=== PATIENT | male | born 1975 | race African-American/Black ===

== ENCOUNTER 2016-11-17 19:10 | Emergency (ER) | payer MEDICAID ==
[~2016-11-17] VITALS: Ht 170.2 cm; Wt 80.7 kg
[~2016-11-17 19:10] MED LIST: ASPIRIN EC325 MG ORAL; ATORVASTATIN CA20 MG ORAL; AZITHROMYCIN250 MG ORAL; GLIPIZIDE5 MG ORAL; METFORMIN HCL500 M1 ORAL; PROMETHAZINE-D118 ML ORAL; QUINAPRIL-HCTZ1 EACH PO; TOBREX3.5 GM OP
[2016-11-17 19:34] VITALS: BP 120/78
[2016-11-17] MEDS ORDERED: DiphenhydrAMINE 50mg/ml Inj IVP ONE (19:45)
[2016-11-17] MEDS ORDERED: Metoclopramide 10mg/2ml Inj IVP ONE (19:45)
[2016-11-17] MEDS ORDERED: LORazepam 1mg tab ORAL ONE (19:45)
[2016-11-17 20:49] LABS: MEAN CORPUSCULAR HEMOGLOBIN 32.9 PG (27.0-31.0); MEAN CORPUSCULAR HGB CONC 34.6 G/DL (32.0-36.0); MEAN CORPUSCULAR VOLUME 95 FL (80-99); MEAN PLATELET VOLUME 10.4 FL (6.5-10.1); PLATELET COUNT 176 K/UL (150-450); RED BLOOD COUNT 4.99 M/UL (4.70-6.10); WHITE BLOOD COUNT 9.2 K/UL (4.8-10.8)
[2016-11-17 20:50] LABS: LYMPHOCYTES % (AUTO) 6.2 % (20.0-45.0); MONOCYTES % (AUTO) 1.7 % (1.0-10.0); NEUTROPHILS % (AUTO) 90.7 % (45.0-75.0)
[2016-11-17 20:51] LABS: BASOPHILS % (AUTO) 1.3 % (0.0-2.0); EOSINOPHILS % (AUTO) 0.1 % (0.0-3.0)
[2016-11-17 21:14] LABS: ALANINE AMINOTRANSFERASE 22 U/L (3-41); ALBUMIN/GLOBULIN RATIO 1.3 (1.0-2.7); ANION GAP 20 (5-15); ASPARTATE AMINO TRANSFERASE 19 U/L (5-40); CALCIUM 9.1 mg/dL (8.6-10.2); CARBON DIOXIDE 22 mEQ/L (20-30); CHLORIDE 97 mEQ/L (98-107); GLOMERULAR FILTRATION RATE > 60 mL/min (>60); HEMOLYSIS 11; LIPASE 16 U/L (< 60); SODIUM 139 mEQ/L (135-145); TOTAL PROTEIN 7.4 g/dL (6.6-8.7)
--- NOTE | 2016-11-17 21:14 | Emergency Room Report ---
History of Present Illness General Chief Complaint: Dizziness Source: Patient (ALEC HERRERA D.O.) Present Illness HPI Patient presents with complaints of increased nausea vomiting Patient reports severe dizziness when he stands Reports that he was at another facility prior to arrival here He was seen was diagnosed with hyperglycemia and vertigo Reports that his symptoms are ongoing Reports that he cannot stand or ambulate Complains of increased dizziness and weakness Denies any chest pressures of breath denies any change in medications (ALEC HERRERA D.O.) Allergies: Coded Allergies: No Known Allergies (Unverified , 10/01/13) Patient History Past Medical History: see triage record Pertinent Family History: none Reviewed Nursing Documentation: PMH: Agreed, PSxH: Agreed (ALEC HERRERA D.O.) Nursing Documentation-PMH Past Medical History: No History, Except For Hx Hypertension: Yes Hx Diabetes: Yes (ALEC HERRERA D.O.) Review of Systems All Other Systems: negative except mentioned in HPI (ALEC HERRERA D.O.) Physical Exam Vital Signs Date Time Temp Pulse Resp B/P Pulse Ox O2 Delivery O2 Flow Rate FiO2 11/17/16 19:17 97.9 98 14 120/78 97 Room Air Sp02 EP Interpretation: reviewed, normal General Appearance: mild distress - Appears uncomfortable Head: normocephalic, atraumatic Eyes: bilateral eye EOMI, bilateral eye PERRL ENT: hearing grossly normal, normal pharynx, TMs + canals normal, uvula midline Neck: full range of motion, supple, no meningismus, no bony tend Respiratory: lungs clear, normal breath sounds, no rhonchi, no respiratory distress, no retraction, no accessory muscle use Cardiovascular #1: normal peripheral pulses, regular rate, rhythm, no edema, no gallop, no JVD, no murmur Gastrointestinal: normal bowel sounds, non tender, soft, no mass, no organomegaly, non-distended, no guarding, no hernia, no pulsatile mass, no rebound Genitourinary: no CVA tenderness Musculoskeletal: normal inspection Neurologic: oriented x3, responsive, customer service sales consultant III-XII nml as tested, motor strength/ tone normal, sensory intact Psychiatric: mood/affect normal Skin: normal color, no rash, warm/dry, palpation normal Lymphatic: normal inspection, no adenopathy (ALEC HERRERA D.O.) Medical Decision Making Diagnostic Impression: Primary Impression: Dizziness Additional Impression: Dizziness of unknown cause ER Course Multiple differentials including but not limited to, metabolic, intracranial, infectious pathology entertained Patient was provided with IV hydration antibiotics Given his severe symptoms Ct was also obtained Did not show any obvious acute pathology (ALEC HERRERA D.O.) ER Course Patient presents with symptoms consistent with vertigo. He was seen yesterday and today at [facility]. Because he was not getting any better he came here. Workup here was unremarkable. Labs normal. CT head negative. He was signout to me for possible transfer. Patient said he felt much better now. No longer dizzy. He was accepted to [facility] [place]. Because he felt better, said he wanted go home. Patient is competent to make that decision. (JAROCHO CERON M.D.) CT/MRI/US Diagnostic Results CT/MRI/US Diagnostic Results : Impression CT head no acute disease (ALEC HERRERA D.O.) Last Vital Signs Date Time Temp Pulse Resp B/P Pulse Ox O2 Delivery O2 Flow Rate FiO2 11/17/16 19:17 97.9 98 14 120/78 97 Room Air (ALEC HERRERA D.O.) Status: improved (JAROCHO CERON M.D.) Disposition: HOME, SELF-CARE Condition: Stable Referrals: [facility] (PCP) Patient Instructions: Vertigo Additional Instructions: Followup with your DrEli in 7 days. Return if symptom worsen. Refill your prescription from [facility] ALEC HERRERA D.O. Nov 17, 2016 21:14 JAROCHO CERON M.D. Nov 17, 2016 22:56
[2016-11-17 21:34] VITALS: BP 123/81
[2016-11-17 23:04] VITALS: BP 129/83
[2016-11-17 23:10] VITALS: BP 129/83
[2016-11-17 23:53] LABS: APPEARANCE,URINE CLEAR; KETONES,URINE 4+ (NEGATIVE); LEUKOCYTE ESTERASE ,URINE NEGATIVE (NEGATIVE); NITRITE,URINE NEGATIVE (NEGATIVE); PH,URINE 6 (4.5-8.0); UROBILINOGEN,URINE NORMAL MG/DL (0.0-1.0)
[2016-11-18 00:05] LABS: PROTEIN,URINE NEGATIVE (NEGATIVE)
--- NOTE | 2016-11-18 09:16 | Diagnostic Imaging Report ---
Indication: Headaches, dizziness with position changes, vomiting, unable ambulate for 2 days Technique: Continuous helical CT scanning of the head was performed without intravenous contrast material. Axial and coronal 5 mm sections were generated. Radiation dose was minimized using automated exposure control Dose: Total Dose Length Product - DLP [address] Dose Index - CTDIvol(s) 70.38 mGy. Comparison: None Findings: The ventricular system is normal in size and configuration. There is no shift of midline structures. No abnormal extra-axial fluid collections are noted. There is no evidence of intracerebral bleeding. No other abnormal high or low density areas are noted within the brain. There is soft tissue swelling of the scalp at the vertex. Impression: Scalp soft tissue swelling. Correlate with any history of recent trauma Negative for acute intracranial bleed or mass effect This agrees with the preliminary interpretation provided overnight by Dr. Castillo The CT scanner at [facility] is accredited by the [employer] and the scans are performed using protocols designed to limit radiation exposure to as low as reasonably achievable to attain images of sufficient resolution adequate for diagnostic evaluation.
== END 2016-11-17 23:10 | disposition home or self-care (01) ==
LOC: EMR 20:35 → CANBEDREQ 22:35 → EMR 23:10
DX: R42 Dizziness and giddiness (principal); I10 Essential (primary) hypertension; E11.9 Type 2 diabetes mellitus without complications
CPT/HCPCS: 36415; 70450; 80053; 80300; 81003; 82962; 83690; 85025; 96360; 96374; 96375; 99284; J1200; J2765

== ENCOUNTER 2016-11-30 17:12 | Emergency (ER) | payer MEDICAID ==
[~2016-11-30] VITALS: Ht 170.2 cm; Wt 80.3 kg
[2016-11-30 17:27] VITALS: BP 137/78
[2016-11-30] MEDS ORDERED: Meclizine 25mg tab ORAL ONE (18:00)
[2016-11-30 18:29] LABS: BASOPHILS % (AUTO) 1.7 % (0.0-2.0); EOSINOPHILS % (AUTO) 0.5 % (0.0-3.0); MEAN CORPUSCULAR VOLUME 94 FL (80-99); MEAN PLATELET VOLUME 10.4 FL (6.5-10.1); MONOCYTES % (AUTO) 5.1 % (1.0-10.0); NEUTROPHILS % (AUTO) 71.7 % (45.0-75.0); PLATELET COUNT 165 K/UL (150-450); RED BLOOD COUNT 4.51 M/UL (4.70-6.10); WHITE BLOOD COUNT 6.3 K/UL (4.8-10.8)
[2016-11-30 18:49] LABS: TROPONIN I < 0.30 ng/mL (<=0.30)
[2016-11-30 18:50] LABS: ALANINE AMINOTRANSFERASE 19 U/L (3-41); ALBUMIN/GLOBULIN RATIO 1.9 (1.0-2.7); ANION GAP 12 (5-15); ASPARTATE AMINO TRANSFERASE 17 U/L (5-40); CALCIUM 9.8 mg/dL (8.6-10.2); CARBON DIOXIDE 30 mEQ/L (20-30); CHLORIDE 97 mEQ/L (98-107); CREATININE 0.9 mg/dL (0.7-1.2); GLOMERULAR FILTRATION RATE > 60 mL/min (>60); HEMOLYSIS 4; POTASSIUM 4.8 mEQ/L (3.4-4.9); SODIUM 139 mEQ/L (135-145); TOTAL PROTEIN 6.4 g/dL (6.6-8.7)
[2016-11-30 19:00] LABS: CKMB 2.4 ng/mL (< 6.7)
[2016-11-30 19:13] VITALS: BP 125/89
[2016-11-30] MEDS ORDERED: AMOXICILLIN500 MG ORAL (19:34)
[2016-11-30 19:40] VITALS: BP 125/89
--- NOTE | 2016-11-30 21:22 | Emergency Room Report ---
History of Present Illness General Chief Complaint: Vertigo Source: Patient Present Illness HPI 40-year-old male presents to ED for evaluation. States that he's been feeling dizziness with nausea. Has been on and off for many days now. Was initially seen at [facility] and diagnosed with ago. Was prescribed meclizine and Zofran. States that symptoms are not improving so he came here a few days ago.Patient had a workup which was negative including negative head CT. Given medications and felt better and was subsequently discharged. Patient at this time states he feels overall better but still feels somewhat dizzy. Room spinning sensation. Patient states he does have a steady gait at this time which he did not before. Patient states he is taking his medications. Feels fullness in his ears bilaterally. Denies any fevers or chills. Denies cough. No other aggravating relieving factors. Denies any other associated symptoms Allergies: Coded Allergies: No Known Allergies (Unverified , 10/01/13) Patient History Past Medical History: DM, HTN Past Surgical History: none Pertinent Family History: none Social History: Denies: alcohol use, drug use, smoking Immunizations: UTD Reviewed Nursing Documentation: PMH: Agreed, PSxH: Agreed Nursing Documentation-PMH Past Medical History: No History, Except For Hx Hypertension: Yes Hx Diabetes: Yes Review of Systems All Other Systems: negative except mentioned in HPI Physical Exam Vital Signs Date Time Temp Pulse Resp B/P Pulse Ox O2 Delivery O2 Flow Rate FiO2 11/30/16 17:15 98.1 99 18 120/75 98 Room Air Sp02 EP Interpretation: reviewed, normal General Appearance: no apparent distress, alert, GCS 15, non-toxic Head: normocephalic, atraumatic Eyes: bilateral eye PERRL, bilateral eye normal inspection ENT: hearing grossly normal, normal pharynx, no angioedema, normal voice, other - Cloudy R TM, poor light reflex Neck: full range of motion, supple/symm/no masses Respiratory: chest non-tender, lungs clear, normal breath sounds, speaking full sentences Cardiovascular #1: regular rate, rhythm, no edema Cardiovascular #2: 2+ carotid (R), 2+ carotid (L), 2+ radial (R), 2+ radial (L) , 2+ dorsalis pedis (R), 2+ dorsalis pedis (L) Gastrointestinal: normal bowel sounds, non tender, soft, non-distended, no guarding, no rebound Rectal: deferred Genitourinary: normal inspection, no CVA tenderness Musculoskeletal: back normal, gait/station normal, normal range of motion, non- tender Neurologic: alert, oriented x3, responsive, motor strength/tone normal, sensory intact, speech normal Psychiatric: judgement/insight normal, memory normal, mood/affect normal, no suicidal/homicidal ideation Reflexes: 3+ bicep (R), 3+ bicep (L), 3+ tricep (R), 3+ tricep (L), 3+ knee (R) , 3+ knee (L) Skin: normal color, no rash, warm/dry, well hydrated Lymphatic: no adenopathy Medical Decision Making Diagnostic Impression: Primary Impression: Otitis media Qualified Codes: H66.91 - Otitis media, unspecified, right ear Additional Impression: Vertigo ER Course Hospital Course 40-year-old male presents ED complaining of dizziness. recently diagnosed with vertigo Differential diagnoses include: W[place]/unstable angina, SVT, A. fib, V. tach, CVA/ TIA, intracranial mass, vertigo Clinical course Patient placed on stretcher. on top cager. After initial history and physical I ordered labs, EKG, IVFs, meclizine, zofran labs reviewed- no leukocytosis, hemoglobin/hematocrit stable, electrolytes okay , troponins negative CXR unremarkable EKG - NSR, no acute changes On review of last visit patient had CT head which was negative, labs which were also negative. Patient does have a cloudy right TM consistent with otitis media. Could be the source of his vertigo symptoms. We will treat with antibiotics Upon reassessment patient states his symptoms have improved. He states he wishes to be discharged at this time will followup with his PMD. I. I feel this is a highly complex case requiring extensive working including EKG/Rhythm strip, Xray/CT/US, Blood/urine lab work, repeat exams while in ED, and administration of strong opiates/narcotics for pain control, admission to hospital or close patient follow up. Diagnosis - vertigo, otitis media stable and discharged to home with prescription for amoxicillin. Followup with PMD. Return to ED if symptoms recur or worsen Labs Test 11/30/16 18:07 White Blood Count 6.3 K/UL (4.8-10.8) Red Blood Count 4.51 M/UL (4.70-6.10) Hemoglobin 14.9 G/DL (14.2-18.0) Hematocrit 42.5 % (42.0-52.0) Mean Corpuscular Volume 94 FL (80-99) Mean Corpuscular Hemoglobin 33.0 PG (27.0-31.0) Mean Corpuscular Hemoglobin Concent 35.0 G/DL (32.0-36.0) Red Cell Distribution Width 13.0 % (11.6-14.8) Platelet Count 165 K/UL (150-450) Mean Platelet Volume 10.4 FL (6.5-10.1) Neutrophils (%) (Auto) 71.7 % (45.0-75.0) Lymphocytes (%) (Auto) 21.0 % (20.0-45.0) Monocytes (%) (Auto) 5.1 % (1.0-10.0) Eosinophils (%) (Auto) 0.5 % (0.0-3.0) Basophils (%) (Auto) 1.7 % (0.0-2.0) Sodium Level 139 mEQ/L (135-145) Potassium Level 4.8 mEQ/L (3.4-4.9) Chloride Level 97 mEQ/L (98-107) Carbon Dioxide Level 30 mEQ/L (20-30) Anion Gap 12 (5-15) Blood Urea Nitrogen 9 mg/dL (7-23) Creatinine 0.9 mg/dL (0.7-1.2) Estimat Glomerular Filtration Rate > 60 mL/min (>60) Glucose Level 217 mg/dL (74-106) Calcium Level 9.8 mg/dL (8.6-10.2) Total Bilirubin 0.4 mg/dL (0.0-1.2) Aspartate Amino Transf (AST/SGOT) 17 U/L (5-40) Alanine Aminotransferase (ALT/SGPT) 19 U/L (3-41) Alkaline Phosphatase 51 U/L (40-129) Total Creatine Kinase 123 U/L (38-174) Creatine Kinase MB 2.4 ng/mL (< 6.7) Creatine Kinase MB Relative Index 1.9 Troponin I < 0.30 ng/mL (<=0.30) Total Protein 6.4 g/dL (6.6-8.7) Albumin 4.2 g/dL (3.5-5.2) Globulin 2.2 g/dL Albumin/Globulin Ratio 1.9 (1.0-2.7) EKG Diagnostic Results Rate: normal Rhythm: NSR ST Segments: no acute changes ASA given to the pt in ED: No Rhythm Strip Diag. Results EP Interpretation: yes Rhythm: NSR, no PVC's, no ectopy Chest X-Ray Diagnostic Results EP Interpretation: Yes Findings: no consolidation, no effusion, no pneumothorax, no acute cardiopulmonary disease Number of Views: 1 Last Vital Signs Date Time Temp Pulse Resp B/P Pulse Ox O2 Delivery O2 Flow Rate FiO2 11/30/16 19:40 98.0 91 19 125/89 100 Room Air Status: improved Disposition: HOME, SELF-CARE Condition: Stable Scripts Amoxicillin* (AMOXIL*) 500 Mg Capsule 500 MG ORAL THREE TIMES A DAY, #21 CAP Prov: TIGRE ISSA M.D. 11/30/16 Patient Instructions: Vertigo, Otitis Media, Adult TIGRE ISSA M.D. November 30, 2016 21:22
--- NOTE | 2016-12-01 09:49 | Diagnostic Imaging Report ---
Indication: Chest Pain Comparison: 04/22/15 A single view chest radiograph was obtained. Findings: Cardiomediastinal appearance is within normal limits for age. Pulmonary vascularity is appropriate. The diaphragmatic contour is smooth and costophrenic angles are sharp. No pleural effusions are identified. The bones are unremarkable. The study is somewhat limited by low lung volumes. Impression: No acute findings
--- NOTE | 2016-12-01 15:48 | Cardiology Report ---
APPROVED REPORT EKG Measurement Heart [id number] Normal sinus rhythm Normal ECG
== END 2016-11-30 19:40 | disposition home or self-care (01) ==
LOC: EMR 17:50
DX: H66.91 Otitis media, unspecified, right ear (principal); R42 Dizziness and giddiness; R11.0 Nausea; E11.9 Type 2 diabetes mellitus without complications; I10 Essential (primary) hypertension
CPT/HCPCS: 36415; 71010; 80053; 82550; 82553; 84484; 85025; 93005; 96374; 96375; 99284; J2405; J7040